=== PATIENT | male | born 1995 | race Caucasian/White ===

== ENCOUNTER 2023-11-07 00:45 | Emergency (ER) | payer SELFPAY ==
[~2023-11-07] VITALS: Ht 167.6 cm; Wt 68.0 kg
[2023-11-07 00:45] VITALS: BP 142/78; PULSE 91; RESP 16; TEMP 98.4; O2SAT 97
== END 2023-11-07 04:40 | disposition left against medical advice (07) ==
LOC: MED 00:45
DX: R07.2 Precordial pain (principal); Z53.21 Procedure and treatment not carried out due to patient leaving prior to being seen by health care provider
CPT/HCPCS: 93005